=== PATIENT | female | born 1955 | race Caucasian/White ===

== ENCOUNTER 2018-03-17 16:43 | Emergency (ER) | payer OTHER ==
[~2018-03-17] VITALS: Ht 160 cm; Wt 167.8 kg
--- NOTE | ~2018-03-17 | EKG ---
[place], [place] ELECTROCARDIOGRAM REPORT NAME: KAMALJIT EDWARDS UNIT #: [id number] ROOM: DOCTOR: EPIPHANY DRAFT REPORT BIRTHDATE: [birth year] [facility] Test Date: 2018-03-17 Test Time: 17:12:32 Pat Name: KAMALJIT EDWARDS Department: er Room: 20 Gender: F Body Cleaner: Misti Saldivar : 1955 Requested By: VU VALENTINE PA-C Order Number: [id number] Reading MD: Jason Flanagan MD Measurements Intervals [place] Rate: 77 P: 43 CT: 147 QRS: -25 QRSD: 90 T: 23 QT: 388 QTc: 440 Interpretive Statements Sinus rhythm Abnormal R-wave progression, early transition Left ventricular hypertrophy Nonspecific T abnormalities, anterior leads Electronically Signed On 03-20-2018 12:19:21 PDT by Jason Flanagan MD CM:EKGRPT:ELECTROCARDIOGRAM REPORT 1712 1219 VU GARCIA DRAFT REPORT VU VALENTINE PA-C
[~2018-03-17 16:43] MED LIST: CHLORTHALIDONE25 MG PO; CLARITIN10 MG PO; COMBIVENT RESPIM4 GM INH; Flovent 220 M220 MCG INH; ISOSORBIDE DINI30 MG PO; KLOR-CON M2020 ME1 PO; LEVOTHYROXINE100 MC1 PO; LISINOPRIL5 MG PO; NORVASC2.5 MG PO; OMEPRAZOLE20 M2 PO; OYSTER SHELL CA1 T23 PO; PRAVACHOL20 MG PO; TENORMIN25 M1 PO; ZITHROMAX Z PA250 MG PO
[2018-03-17 17:29] LABS: BASO # 0.1 10*3/uL (0.0-0.1); BASO % 0.8 % (0.0-1.0); EOS # 0.1 10*3/uL (0.0-0.4); EOS % 1.4 % (1.0-4.0); HEMATOCRIT 44.6 % (37.0-47.0); HEMOGLOBIN 14.7 g/dl (12.0-16.0); LYMPH # 2.2 10*3/uL (1.3-4.4); LYMPH % 25.7 % (27.0-41.0); MEAN CELL VOLUME 86.6 fl (81.0-99.0); MEAN CORPUSCULAR HGB 28.5 pg (27.0-31.0); MEAN PLATELET VOLUME 10.7 fl (9.6-12.3); MONO # 0.8 10*3/uL (0.1-1.0); MONO % 9.4 % (3.0-9.0); NEUT # 5.4 10*3/uL (2.3-7.9); NEUT % 62.5 % (47.0-73.0); PLATELET COUNT AUTOMATED 257 10*3/uL (130-400); RED BLOOD COUNT 5.15 10*6/uL (4.10-5.10); RED CELL DISTRI WIDTH 13.2 % (0-14.5); WHITE BLOOD COUNT 8.6 10*3/uL (4.8-10.8)
[2018-03-17 17:47] LABS: ALBUMIN 3.5 gm/dl (3.1-4.5); ALKALINE PHOSPHATASE 48 U/L (45-117); BUN 16 mg/dl (7-24); CHLORIDE 100 mmol/L (98-107); CREATININE 1.07 mg/dL (0.55-1.02); LIPASE 119 U/L (73-393); POTASSIUM 3.6 mmol/L (3.5-5.1); SGOT/AST 15 IU/L (3-35); SGPT/ALT 23 U/L (12-78); SODIUM 135 mmol/L (136-145); TOTAL PROTEIN 7.5 gm/dL (6.4-8.2)
[2018-03-17 17:49] LABS: TROPONIN I < 0.015 ng/ml (<0.045)
[2018-03-17] MEDS ORDERED: ZOFRAN ODT4 MG SL (19:08)
[2018-03-17] MEDS ORDERED: PROTONIX40 MG PO (19:08)
[2018-04-21] MEDS ORDERED: VITAMIN B-121000 MC2 PO (12:04)
[2018-04-25] MEDS ORDERED: Motrin,Rufen800 MG PO (10:25)
== END 2018-03-17 19:19 | disposition home or self-care (01) ==
LOC: ED 16:43
PROVIDERS: Physician Assistant
DX: R10.13 Epigastric pain (principal); R11.0 Nausea; Z88.2 Allergy status to sulfonamides; Z88.1 Allergy status to other antibiotic agents; Z79.899 Other long term (current) drug therapy; Z79.82 Long term (current) use of aspirin; Z90.49 Acquired absence of other specified parts of digestive tract; Z98.51 Tubal ligation status

== ENCOUNTER 2018-04-24 10:58 | Emergency (ER) | payer OTHER ==
[~2018-04-24 10:58] MED LIST changes: +PROTONIX40 MG PO; +VITAMIN B-121000 MC2 PO; +ZOFRAN ODT4 MG SL
[2018-04-24 11:35] LABS: BASO % 0.6 % (0.0-1.0); EOS # 0.1 10*3/uL (0.0-0.4); EOS % 1.3 % (1.0-4.0); HEMATOCRIT 45.1 % (37.0-47.0); HEMOGLOBIN 14.9 g/dl (12.0-16.0); LYMPH # 2.1 10*3/uL (1.3-4.4); LYMPH % 31.2 % (27.0-41.0); MEAN CELL VOLUME 86.9 fl (81.0-99.0); MEAN CORPUSCULAR HGB 28.7 pg (27.0-31.0); MEAN PLATELET VOLUME 10.8 fl (9.6-12.3); MONO # 0.6 10*3/uL (0.1-1.0); MONO % 9.5 % (3.0-9.0); NEUT # 3.9 10*3/uL (2.3-7.9); NEUT % 57.3 % (47.0-73.0); PLATELET COUNT AUTOMATED 239 10*3/uL (130-400); RED BLOOD COUNT 5.19 10*6/uL (4.10-5.10); RED CELL DISTRI WIDTH 13.1 % (0-14.5); WHITE BLOOD COUNT 6.8 10*3/uL (4.8-10.8)
[2018-04-24 11:57] LABS: BILIRUBIN NEGATIVE (NEGATIVE); BLOOD 1+ (NEGATIVE); CLARITY CLOUDY (CLEAR); COLOR YELLOW (YELLOW); GLUCOSE NEGATIVE (NEGATIVE); KETONE NEGATIVE (NEGATIVE); NITRITE NEGATIVE (NEGATIVE); SPECIFIC GRAVITY 1.015 (1.005-1.030); UROBILINOGEN 0.2 E.U./dl (0.2-1.0)
[2018-04-24 11:59] LABS: ALBUMIN 3.4 gm/dl (3.1-4.5); ALKALINE PHOSPHATASE 49 U/L (45-117); BUN 10 mg/dl (7-24); CHLORIDE 98 mmol/L (98-107); CREATININE 0.95 mg/dL (0.55-1.02); LIPASE 99 U/L (73-393); POTASSIUM 3.8 mmol/L (3.5-5.1); SGOT/AST 24 IU/L (3-35); SGPT/ALT 49 U/L (12-78); SODIUM 135 mmol/L (136-145); TOTAL PROTEIN 7.3 gm/dL (6.4-8.2)
[2018-04-24 12:14] LABS: WBC 31-40 wbc/hpf (0-5)
[2018-04-24 12:15] LABS: BACTERIA 2+; LEUKO ESTERASE 1+ (NEGATIVE)
[2018-04-24 12:31] VITALS: BP 105/62
[2018-04-24] MEDS ORDERED: PROTONIX40 MG PO (13:23)
[2018-04-25] MEDS ORDERED: Motrin,Rufen800 MG PO (10:25)
== END 2018-04-24 13:37 | disposition home or self-care (01) ==
LOC: ED 10:58
PROVIDERS: Nurse Practitioner Family
DX: K21.9 Gastro-esophageal reflux disease without esophagitis (principal); Z88.2 Allergy status to sulfonamides; Z88.1 Allergy status to other antibiotic agents; Z79.899 Other long term (current) drug therapy

== ENCOUNTER → 2018-04-25 | Day surgery (SDC) | payer OTHER ==
[~2018-04-25] VITALS: Ht 177.8 cm; Wt 167.8 kg
[~2018-04-25] MED LIST changes: +Motrin,Rufen800 MG PO
[2018-04-25 08:00] VITALS: BP 107/61
[2018-04-25 10:04] VITALS: BP 110/74
[2018-04-25 10:19] VITALS: BP 110/74
[2018-04-25 10:34] VITALS: BP 110/74
[2018-04-25 10:48] VITALS: BP 101/49
[2018-04-25 10:55] VITALS: BP 120/66
== END | disposition home or self-care (01) ==
LOC: SDC 04-21 12:30
DX: C54.1 Malignant neoplasm of endometrium (principal); I10 Essential (primary) hypertension; K21.9 Gastro-esophageal reflux disease without esophagitis; E78.5 Hyperlipidemia, unspecified; M19.90 Unspecified osteoarthritis, unspecified site; J43.9 Emphysema, unspecified; E07.9 Disorder of thyroid, unspecified; E66.01 Morbid (severe) obesity due to excess calories; Z68.43 Body mass index [BMI] 50.0-59.9, adult; Z88.1 Allergy status to other antibiotic agents; Z88.2 Allergy status to sulfonamides; Z90.49 Acquired absence of other specified parts of digestive tract; Z98.51 Tubal ligation status; Z96.653 Presence of artificial knee joint, bilateral; Z79.899 Other long term (current) drug therapy

== ENCOUNTER → 2018-05-05 | Day surgery (SDC) | payer OTHER ==
[~2018-05-05] VITALS: Ht 162.5 cm; Wt 167.8 kg
--- NOTE | ~2018-05-05 | PROC NOTE ---
[place], [place] PROCEDURE NOTE NAME: KAMALJIT EDWARDS [facility] #: [id number] UNIT #: [id number] ROOM: DOCTOR: FRANSICO HIDALGO MD BIRTHDATE: [birth year] DOS: 05/05/2018 PREOPERATIVE DIAGNOSES: Nausea and emesis. POSTOPERATIVE DIAGNOSIS: Gastritis. PROCEDURE: Esophagogastroduodenoscopy with antral biopsies x 2. ENDOSCOPIST: Fransico Hidalgo M.D. ADMISSIONS SPECIALIST: None. ANESTHESIA: MAC. INDICATIONS: This is a 62-year-old lady with a history of persistent nausea and vomiting who is here for the above-mentioned procedure. The procedure and its complications were explained to the patient in detail preoperatively. Complications that were discussed included, but were not limited to bleeding, stomach perforation, and missed lesions. She agreed to proceed. DESCRIPTION OF PROCEDURE: After identifying the patient, the patient was brought to the endoscopy suite and placed in the left lateral position. After IV sedation was administered, a timeout procedure was called and a bite block was placed. An adult gastroscope was now introduced into the mouth and advanced sequentially into the pharynx, esophagus, stomach and the first 2 parts of the duodenum. There was found to be mild gastritis for which two antral biopsies were taken and sent for histopathological diagnosis. The scope was retroflexed in the stomach and the rest of the stomach was visualized. There were no obvious lesions that could be seen. The scope was then withdrawn and the patient was brought back to the recovery room in stable fashion. The patient tolerated the procedure well. There were no complications. Dr. Fransico Hidalgo, the attending endoscopist, was present throughout the operating case. Fransico Hidalgo MD CM:PROCNOTE:PROCEDURE NOTE [id number] FRANSICO HIDALGO MD
[2018-05-05 08:45] VITALS: BP 112/5
[2018-05-05 09:45] VITALS: BP 125/67
[2018-05-05 10:00] VITALS: BP 112/62
[2018-05-05 10:15] VITALS: BP 116/60
== END | disposition home or self-care (01) ==
LOC: SDC 05-03 15:30
DX: K29.50 Unspecified chronic gastritis without bleeding (principal); K31.9 Disease of stomach and duodenum, unspecified; I10 Essential (primary) hypertension; K21.9 Gastro-esophageal reflux disease without esophagitis; J43.9 Emphysema, unspecified; E66.01 Morbid (severe) obesity due to excess calories; E07.9 Disorder of thyroid, unspecified; Z87.19 Personal history of other diseases of the digestive system; Z98.890 Other specified postprocedural states; Z88.2 Allergy status to sulfonamides; Z88.8 Allergy status to other drugs, medicaments and biological substances; Z68.44 Body mass index [BMI] 60.0-69.9, adult; Z79.899 Other long term (current) drug therapy

== ENCOUNTER 2020-06-02 17:22 | Emergency (ER) | payer OTHER ==
[~2020-06-02] VITALS: Ht 165.1 cm; Wt 158.8 kg
[2020-06-02 17:30] VITALS: BP 108/69
[2020-06-02 18:44] LABS: BASO % 0.3 % (0.0-1.0); EOS % 0.2 % (1.0-4.0); HEMATOCRIT 48.2 % (37.0-47.0); LYMPH # 1.3 10*3/uL (1.3-4.4); LYMPH % 22.6 % (27.0-41.0); MEAN CELL VOLUME 86.1 fl (81.0-99.0); MEAN CORPUSCULAR HGB 27.1 pg (27.0-31.0); MEAN CORPUSCULAR HGB CONC 31.5 g/dl (33.0-37.0); MEAN PLATELET VOLUME 10.7 fl (9.6-12.3); MONO # 0.6 10*3/uL (0.1-1.0); MONO % 9.9 % (3.0-9.0); NEUT % 66.8 % (47.0-73.0); PLATELET COUNT AUTOMATED 233 10*3/uL (130-400); RED CELL DISTRI WIDTH 13.3 % (0-14.5); WHITE BLOOD COUNT 5.9 10*3/uL (4.8-10.8)
[2020-06-02 19:09] LABS: ALBUMIN 3.5 gm/dl (3.1-4.5); ALKALINE PHOSPHATASE 59 U/L (45-117); BUN 12 mg/dl (7-24); CHLORIDE 97 mmol/L (98-107); CREATININE 1.01 mg/dL (0.55-1.02); LIPASE 87 U/L (73-393); POTASSIUM 3.5 mmol/L (3.5-5.1); SGOT/AST 30 IU/L (3-35); SGPT/ALT 39 U/L (12-78); SODIUM 135 mmol/L (136-145); TOTAL PROTEIN 7.9 gm/dL (6.4-8.2)
[2020-06-02 19:29] LABS: BILIRUBIN Negative (Negative); BLOOD Trace-Lysed (Negative); CLARITY Clear (Clear); COLOR Yellow (Yellow); GLUCOSE Negative (Negative); KETONE Negative (Negative); LEUKO ESTERASE 1+ (Negative); NITRITE Negative (Negative); PH 6.5 (4.5-8.0); SPECIFIC GRAVITY 1.015 (1.001-1.030)
[2020-06-02 19:50] LABS: BACTERIA 1+; EPITHELIAL CELLS TNTC
[2020-06-02] MEDS ORDERED: PROVENTIL HFA6.7 GM INH (23:04)
[2020-06-02] MEDS ORDERED: ZITHROMAX250 MG PO (23:04)
[2020-06-02] MEDS ORDERED: ZOFRAN4 MG PO (23:04)
[2020-06-02] MEDS ORDERED: PREDNISONE20 M1 PO (23:04)
== END 2020-06-02 23:14 | disposition home or self-care (01) ==
LOC: ED 17:22
PROVIDERS: Physician Assistant
DX: U07.1 COVID-19 (principal); J12.89 Other viral pneumonia; I10 Essential (primary) hypertension; J44.9 Chronic obstructive pulmonary disease, unspecified; K21.9 Gastro-esophageal reflux disease without esophagitis; Z90.49 Acquired absence of other specified parts of digestive tract; Z90.710 Acquired absence of both cervix and uterus; Z88.2 Allergy status to sulfonamides; Z88.8 Allergy status to other drugs, medicaments and biological substances; Z88.1 Allergy status to other antibiotic agents; Z79.899 Other long term (current) drug therapy; Z98.51 Tubal ligation status; Z96.653 Presence of artificial knee joint, bilateral; Z98.61 Coronary angioplasty status

== ENCOUNTER 2023-12-10 01:20 | Inpatient (IN) | payer OTHER ==
[~2023-12-10] VITALS: Ht 165.1 cm; Wt 165.3 kg
[~2023-12-10 01:20] MED LIST changes: +PREDNISONE20 M1 PO; +PROVENTIL HFA6.7 GM INH; +ZITHROMAX250 MG PO; +ZOFRAN4 MG PO
[2023-12-10 01:26] VITALS: BP 94/55
[2023-12-10 02:01] LABS: BASO # 0.1 10*3/uL (0.0-0.1); BASO % 0.7 % (0.0-1.0); EOS # 0.2 10*3/uL (0.0-0.4); EOS % 1.6 % (1.0-4.0); LYMPH # 2.9 10*3/uL (1.3-4.4); LYMPH % 29.7 % (27.0-41.0); MEAN CELL VOLUME 88.1 fl (81.0-99.0); MEAN CORPUSCULAR HGB CONC 32.9 g/dl (33.0-37.0); MEAN PLATELET VOLUME 10.2 fl (9.6-12.3); MONO # 1.1 10*3/uL (0.1-1.0); MONO % 11.2 % (3.0-9.0); NEUT # 5.5 10*3/uL (2.3-7.9); NEUT % 56.4 % (47.0-73.0); PLATELET COUNT AUTOMATED 273 10*3/uL (130-400); RED BLOOD COUNT 5.56 10*6/uL (4.10-5.10); RED CELL DISTRI WIDTH 12.7 % (0-14.5); WHITE BLOOD COUNT 9.7 10*3/uL (4.8-10.8)
[2023-12-10 02:11] LABS: ACT PARTIAL THROMBO TIME 23.9 SECONDS (20.0-32.1)
[2023-12-10 02:22] LABS: ALKALINE PHOSPHATASE 49 U/L (46-116); BUN 7 mg/dl (9-23); CHLORIDE 96 mmol/L (98-107); LIPASE 33 U/L (12-53); POTASSIUM 3.8 mmol/L (3.4-5.1); SGPT/ALT 26 U/L (5-49); TOTAL PROTEIN 7.3 gm/dL (6.0-8.0)
[2023-12-10] MEDS ORDERED: MG-AL HYDROXIDE/SIMETICONE 30 ML UDC PO STA (03:04)
[2023-12-10] MEDS ORDERED: Lidocaine Hydrochloride 15 ML UDC PO STA (03:04)
[2023-12-10] MEDS ORDERED: Dicyclomine Hydrochloride 20 MG/10 ML OSYR PO STA (03:04)
[2023-12-10 04:18] LABS: BILIRUBIN 2+ (Negative); BLOOD Negative (Negative); CLARITY Cloudy (Clear); COLOR Orange (Yellow); GLUCOSE Trace (Negative); KETONE Trace (Negative); LEUKO ESTERASE 1+ (Negative); NITRITE Positive (Negative); SPECIFIC GRAVITY >= 1.030 (1.001-1.030)
[2023-12-10 04:25] LABS: BACTERIA 3+; EPITHELIAL CELLS TNTC
[2023-12-10 04:26] LABS: WBC 16-20 wbc/hpf (0-5)
[2023-12-10] MEDS ORDERED: Ceftriaxone Sodium 1 GM/10 ML SYR IV ONE (04:55)
[2023-12-10] MEDS ORDERED: SODIUM CHLORIDE 0.9% 1,000 ML IV ONE ×2 (04:55→05:45)
[2023-12-10] MEDS ORDERED: Ondansetron Hydrochloride 4 MG/2 ML VIAL IV ONE (05:00)
[2023-12-10] MEDS ORDERED: Magnesium Hydroxide 30 ML UDC PO PRN (05:10)
[2023-12-10] MEDS ORDERED: ACETAMINOPHEN 325 MG TAB PO PRN (05:10)
[2023-12-10] MEDS ORDERED: Ondansetron Hydrochloride 4 MG/2 ML VIAL IV PRN (05:10)
[2023-12-10] MEDS ORDERED: Albuterol Sulf/Ipratropium 14.7 GM INHALER INH PRN (06:05)
[2023-12-10 06:45] VITALS: BP 98/68
[2023-12-10] MEDS ORDERED: Levothyroxine Sodium 100 MCG TAB PO SCH (06:48)
[2023-12-10] MEDS ORDERED: OMEPRAZOLE 20 MG CAP PO SCH (06:50)
[2023-12-10] MEDS ORDERED: Albuterol Sulf/Ipratropium 3 ML VIAL NEB PRN (07:00)
[2023-12-10] MEDS ORDERED: BUDESONIDE 0.5 MG AMP NEB SCH (07:20)
[2023-12-10 08:18] VITALS: BP 110/78
[2023-12-10] MEDS ORDERED: Enoxaparin Sodium 40 MG/0.4 ML SYR SC SCH (10:00)
[2023-12-10] MEDS ORDERED: ISOSORBIDE MONONITRATE 30 MG TAB PO SCH (10:00)
[2023-12-10] MEDS ORDERED: LISINOPRIL 5 MG TAB PO SCH (10:00)
[2023-12-10] MEDS ORDERED: FLOVENT 220 MCG INH SCH (10:00)
[2023-12-10] MEDS ORDERED: PRAVASTATIN SODIUM 20 MG TAB PO SCH (10:00)
[2023-12-10 18:46] VITALS: BP 92/50
[2023-12-10 21:20] VITALS: BP 106/76
[2023-12-10] MEDS ORDERED: ATORVASTATIN CALCIUM 10 MG TAB PO SCH (22:00)
[2023-12-10] MEDS ORDERED: Melatonin 5 MG TABLET PO PRN (22:30)
[2023-12-11] VITALS: BP 114/52; BP 99/57
[2023-12-11] MEDS ORDERED: Ceftriaxone Sodium 1 GM in SYRINGE INFUSION 10 ML IV SCH (06:00)
[2023-12-11] MEDS ORDERED: OMEPRAZOLE 20 MG CAP PO SCH (06:00)
[2023-12-11 06:15] LABS: BASO # 0.1 10*3/uL (0.0-0.1); BASO % 0.6 % (0.0-1.0); EOS # 0.2 10*3/uL (0.0-0.4); EOS % 2.1 % (1.0-4.0); HEMATOCRIT 45.8 % (37.0-47.0); LYMPH # 2.9 10*3/uL (1.3-4.4); LYMPH % 30.7 % (27.0-41.0); MEAN CELL VOLUME 87.2 fl (81.0-99.0); MEAN CORPUSCULAR HGB CONC 33.2 g/dl (33.0-37.0); MEAN PLATELET VOLUME 11.2 fl (9.6-12.3); MONO # 1.2 10*3/uL (0.1-1.0); MONO % 12.9 % (3.0-9.0); NEUT # 5.1 10*3/uL (2.3-7.9); NEUT % 53.4 % (47.0-73.0); PLATELET COUNT AUTOMATED 234 10*3/uL (130-400); RED BLOOD COUNT 5.25 10*6/uL (4.10-5.10); RED CELL DISTRI WIDTH 13.2 % (0-14.5); WHITE BLOOD COUNT 9.5 10*3/uL (4.8-10.8)
[2023-12-11 06:21] LABS: ALKALINE PHOSPHATASE 46 U/L (46-116); BUN 10 mg/dl (9-23); CHLORIDE 97 mmol/L (98-107); POTASSIUM 3.8 mmol/L (3.4-5.1); SGPT/ALT 23 U/L (5-49); TOTAL PROTEIN 6.9 gm/dL (6.0-8.0)
[2023-12-11 08:00] VITALS: BP 110/78
[2023-12-11] MEDS ORDERED: PERFLUTREN PROTEIN-A MICROSPHR 3 ML VIAL IV ONE (08:35)
[2023-12-11] MEDS ORDERED: SODIUM CHLORIDE 0.9% 1,000 ML IV ONE (10:55)
[2023-12-11 12:00] VITALS: BP 106/50
[2023-12-11 16:00] VITALS: BP 110/95
[2023-12-11 20:00] VITALS: BP 110/51
[2023-12-12] VITALS: BP 110/54
[2023-12-12 07:27] LABS: BASO # 0.1 10*3/uL (0.0-0.1); BASO % 0.8 % (0.0-1.0); EOS # 0.2 10*3/uL (0.0-0.4); EOS % 3.2 % (1.0-4.0); HEMATOCRIT 43.7 % (37.0-47.0); LYMPH # 2.8 10*3/uL (1.3-4.4); LYMPH % 38.2 % (27.0-41.0); MEAN CELL VOLUME 87.1 fl (81.0-99.0); MEAN CORPUSCULAR HGB 28.7 pg (27.0-31.0); MEAN PLATELET VOLUME 10.6 fl (9.6-12.3); MONO # 0.9 10*3/uL (0.1-1.0); MONO % 12.2 % (3.0-9.0); NEUT # 3.4 10*3/uL (2.3-7.9); NEUT % 45.3 % (47.0-73.0); PLATELET COUNT AUTOMATED 214 10*3/uL (130-400); RED BLOOD COUNT 5.02 10*6/uL (4.10-5.10); RED CELL DISTRI WIDTH 13.2 % (0-14.5); WHITE BLOOD COUNT 7.4 10*3/uL (4.8-10.8)
[2023-12-12 07:50] LABS: BUN 8 mg/dl (9-23); CHLORIDE 98 mmol/L (98-107); POTASSIUM 3.3 mmol/L (3.4-5.1)
[2023-12-12 08:00] VITALS: BP 113/68
[2023-12-12] MEDS ORDERED: POTASSIUM CHLORIDE 20 MEQ TAB PO ONE (08:05)
[2023-12-12 12:00] VITALS: BP 111/71
[2023-12-12] MEDS ORDERED: OMEPRAZOLE MAGN20 MG PO (12:22)
== END 2023-12-12 14:23 | disposition home or self-care (01) | DRG 463 ==
LOC: ED 01:20 → EDHOLD 05:03 → 4E 19:56
PROVIDERS: Internal Medicine; Student in an Organized Health Care Education/Training Program; ADMIT Internal Medicine; ATTEND Internal Medicine
DX: N30.00 Acute cystitis without hematuria (principal); G93.41 Metabolic encephalopathy; E87.20 Acidosis, unspecified; E87.1 Hypo-osmolality and hyponatremia; Z68.44 Body mass index [BMI] 60.0-69.9, adult; K21.9 Gastro-esophageal reflux disease without esophagitis; E78.5 Hyperlipidemia, unspecified; D75.1 Secondary polycythemia; R73.9 Hyperglycemia, unspecified; E87.8 Other disorders of electrolyte and fluid balance, not elsewhere classified; E53.8 Deficiency of other specified B group vitamins; E55.9 Vitamin D deficiency, unspecified; E66.01 Morbid (severe) obesity due to excess calories; K27.9 Peptic ulcer, site unspecified, unspecified as acute or chronic, without hemorrhage or perforation; R07.89 Other chest pain; Z88.1 Allergy status to other antibiotic agents; Z88.2 Allergy status to sulfonamides; Z88.8 Allergy status to other drugs, medicaments and biological substances; Z82.49 Family history of ischemic heart disease and other diseases of the circulatory system; Z81.1 Family history of alcohol abuse and dependence; Z80.0 Family history of malignant neoplasm of digestive organs; Z80.1 Family history of malignant neoplasm of trachea, bronchus and lung; Z90.49 Acquired absence of other specified parts of digestive tract; Z98.51 Tubal ligation status

== ENCOUNTER → 2024-04-26 | Day surgery (SDC) | payer OTHER ==
[~2024-04-26] VITALS: Ht 165.1 cm; Wt 167.8 kg
[~2024-04-26] MED LIST changes: +Balanced Salt Solution 500 ML OPH SCH; +Cefuroxime Sodium 5 MG in BALANCED SALT IRRIG SOLN NO.2 0.5 ML,SYRINGE, DISPOSABLE, 10 ... IO SCH; +Midazolam Hydrochloride 2 MG/2 ML VIAL IV ONE; +OFLOXACIN 0.3% 5 ML BOTTLE ONE; +OMEPRAZOLE MAGN20 MG PO; +PHENYLEPHRINE/KETOROLAC 4 ML in Balanced Salt Solution 500 ML OPH SCH; +POVIDONE IODINE 5% OPHTHALMIC 30 ML BOTTLE OPH ONE; +POVIDONE IODINE 5% OPHTHALMIC 30 ML BOTTLE OPH SCH; +Phenylephrine Hydrochloride 2 ML BOT OPH ONE; +Phenylephrine Hydrochloride 2 ML BOT OPH SCH; +Proparacaine Hydrochloride 15 ML BOT OPH ONE; +Proparacaine Hydrochloride 15 ML BOT OPH SCH; +SODIUM CHLORIDE 0.9% 1,000 ML IV SCH; +TOBRAMYCIN 2.5 ML BOT OPH SCH; +TROPICAMIDE 3 ML BOT OPH ONE; +TROPICAMIDE 3 ML BOT OPH SCH; +Tetracaine Hydrochloride 0.5% 4 ML BOT OPH ONE; +Tetracaine Hydrochloride 0.5% 4 ML BOT OPH SCH; +prednisoLONE acetate 1% OPHTHALMIC 5 ML BOT OPH ONE; +prednisoLONE acetate 1% OPHTHALMIC 5 ML BOT OPH SCH
[2024-04-26 12:11] VITALS: BP 125/65
[2024-04-26 13:06] VITALS: BP 126/71
[2024-04-26 13:21] VITALS: BP 131/71
[2024-04-26 13:36] VITALS: BP 128/69
== END | disposition home or self-care (01) ==
LOC: SDC 04-21 17:00
PROVIDERS: ATTEND Ophthalmology
DX: H25.11 Age-related nuclear cataract, right eye (principal); I10 Essential (primary) hypertension; E03.9 Hypothyroidism, unspecified; K21.9 Gastro-esophageal reflux disease without esophagitis; J44.9 Chronic obstructive pulmonary disease, unspecified; E78.00 Pure hypercholesterolemia, unspecified; E66.9 Obesity, unspecified; Z68.44 Body mass index [BMI] 60.0-69.9, adult; Z90.710 Acquired absence of both cervix and uterus; Z98.51 Tubal ligation status; Z98.890 Other specified postprocedural states; Z88.2 Allergy status to sulfonamides; Z88.8 Allergy status to other drugs, medicaments and biological substances; Z79.890 Hormone replacement therapy; Z79.899 Other long term (current) drug therapy

== ENCOUNTER → 2024-05-24 | Day surgery (SDC) | payer OTHER ==
[~2024-05-24] VITALS: Ht 165.1 cm; Wt 167.8 kg
[~2024-05-24] MED LIST changes: +Dexamethasone/Tobramycin OPHTHALMIC 2.5 ML BOTTLE ONE; +TETRACAINE HCL 10 DROP BOT OPH SCH
[2024-05-24 11:00] VITALS: BP 127/68
[2024-05-24 12:15] VITALS: BP 137/80
[2024-05-24 12:45] VITALS: BP 115/64; BP 122/65
[2024-05-24 13:00] VITALS: BP 115/64; BP 124/71
[2024-05-24 13:15] VITALS: BP 124/71
== END | disposition home or self-care (01) ==
LOC: SDC 05-22 08:00
PROVIDERS: ATTEND Ophthalmology
DX: H25.12 Age-related nuclear cataract, left eye (principal); I10 Essential (primary) hypertension; E78.00 Pure hypercholesterolemia, unspecified; E03.9 Hypothyroidism, unspecified; J44.9 Chronic obstructive pulmonary disease, unspecified; K21.9 Gastro-esophageal reflux disease without esophagitis; Z90.710 Acquired absence of both cervix and uterus; Z98.51 Tubal ligation status; Z88.2 Allergy status to sulfonamides; Z79.890 Hormone replacement therapy; Z79.899 Other long term (current) drug therapy; Z98.890 Other specified postprocedural states